=== PATIENT | female | born 1990 | race American Indian/Alaskan Native ===

== ENCOUNTER 2018-05-14 16:56 | Inpatient (IN) | payer MEDICAID ==
[2018-05-14] MEDS ORDERED: MINERAL OIL PO PRN (18:42)
[2018-05-14] MEDS ORDERED: ePHEDrine SULFATE IV PRN (18:42)
[2018-05-14] MEDS ORDERED: BRETHINE SUB-Q PRN (18:42)
[2018-05-14] MEDS ORDERED: BRETHINE IVP PRN (18:42)
[2018-05-14] MEDS ORDERED: ZOFRAN IV PRN (18:42)
--- NOTE | 2018-05-14 18:44 | History and Physical Report ---
History of Present Illness Date of examination: 05/14/18 Date of admission: 05/14/2018 Chief complaint: active labor History of present illness: 27y/o @ 40+4 weeks presents in active labor. The patient had cervical change from 1cm to 4cm. She denies leakage of fluid. Past History Past Medical History: no pertinent history Past Surgical History: no surgical history Social history: single - Obstetrical History Expected Date of Delivery: 05/10/18 Actual Gestation: 40 Week(s) 5 Day(s) : 1 Para: 0 Hx # Term Pregnancies: 0 Number of Pregnancies: 0 Spontaneous Abortions: 0 Induced : 0 Number of Living Children: 0 Medications and Allergies Allergies Allergy/AdvReac Type Severity Reaction Status Date / Time No Known Allergies Allergy Unverified 05/14/18 17:09 Home Medications Medication Instructions Recorded Confirmed Last Taken Type No Known Home Medications [No 05/14/18 05/14/18 Unknown History Reported Home Medications] Active Meds: Active Medications Lactated Ringer's (Lactated Ringers) 1,000 mls @ 125 mls/hr IV DIRECT PAMLEA Review of Systems All systems: negative Genitourinary: contractions, no leakage of fluid - Vital Signs Vital signs: Vital Signs Pulse Pulse Ox 85 99 05/14/18 17:12 05/14/18 17:12 Temp Pulse Resp BP Pulse Ox 98.6 F 77 18 119/75 100 05/14/18 17:13 05/14/18 18:34 05/14/18 17:13 05/14/18 18:34 05/14/18 17:22 - Physical Exam Breasts: Positive: deferred Cardiovascular: Regular rate Lungs: Positive: Clear to auscultation Abdomen: Positive: normal appearance Results Result Diagrams: 05/14/18 18:53 All other labs normal. Assessment and Plan - Patient Problems (1) Post-term Current Visit: Yes Status: Acute Plan to address problem: admit to L&D
[2018-05-14] MEDS ORDERED: PITOCin/NS 20 UNIT/1000ML DRIP 20 UNITS/1,000 ML BAG IV SCH (19:00)
[2018-05-14] MEDS ORDERED: LACTATED RINGERS 1,000 ML IV SCH (19:00)
[2018-05-14] MEDS ORDERED: XYLOCAINE 2% INFILTRATI ONE (19:00)
[2018-05-14] MEDS ORDERED: PITOCin/NS 30 UNIT/500ML 30 UNITS/500 ML BAG IV SCH (19:00)
[2018-05-14] MEDS: LACTATED RINGERS 1,000 ML IV SCH ×2 (19:05→22:28)
[2018-05-14 19:10] LABS: Hematocrit 36.3 % (30.3-42.9); Mean Corpuscular HGB Conc 33 % (30-34); Mean Corpuscular Hemoglobin 29 pg (28-32); Mean Corpuscular Volume 88 fl (79-97); Platelet Count 240 K/mm3 (140-440); Red Blood Count 4.13 M/mm3 (3.65-5.03); Red Cell Distribution Width 14.5 % (13.2-15.2)
[2018-05-14] MEDS: SUBLIMAZE IV PRN ×2 (20:11→22:27)
[2018-05-15] MEDS: SUBLIMAZE IV PRN (01:03)
[2018-05-15] MEDS: LACTATED RINGERS 1,000 ML IV SCH (01:04)
[2018-05-15] MEDS ORDERED: NARCAN 2 MG/2 ML IV PRN (03:03)
[2018-05-15] MEDS ORDERED: ePHEDrine SULFATE IV PRN (03:03)
--- NOTE | 2018-05-15 03:03 | Anesthesia Consultation ---
Anesthesia Consult and Med Hx Date of service: 05/15/18 - Airway Anesthetic Teeth Evaluation: Good ROM Head & Neck: Adequate Mental/Hyoid Distance: Adequate Mallampati Class: Class II Intubation Access Assessment: Good - Pulmonary Exam CTA: Yes - Cardiac Exam Cardiac Exam: No Murmur - Pre-Operative Health Status ASA Pre-Surgery Classification: ASA2 Proposed Anesthetic Plan: Epidural - Pulmonary Hx Asthma: No - Cardiovascular System Hx Hypertension: No - Central Nervous System Hx Seizures: No Hx Psychiatric Problems: No - Endocrine Hx Renal Disease: No Hx Hypothyroidism: No Hx Hyperthyroidism: No - Hematic Hx Anemia: No Hx Sickle Cell Disease: No - Other Systems Hx Alcohol Use: No
[2018-05-15] MEDS: fentaNYL-BUPIV 2 MCG/ML-0.125% 200 MCG/100 ML BAG EPIDURAL SCH ×2 (04:02→11:14)
[2018-05-15] MEDS ORDERED: METHERGINE IM ONE ×2 (12:47→13:10)
--- NOTE | 2018-05-15 13:09 | Procedure Note ---
OB Delivery Note - Delivery Date of Delivery: 05/15/18 (6-7oz male @ 1245) Surgeon: KAE STRINGER Estimated blood loss: 300cc - Vaginal Delivery presentation: vertex Delivery position: OA Intrapartum events: mult.variable deceleratio Delivery augmentation: rupture of membranes, pitocin Delivery monitor: external FHT, external uterine Route of delivery: Delivery placenta: spontaneous Episiotomy: none Delivery laceration: none Anesthesia: epidural - Infant A at 1 minute: 8 at 5 minutes: 9 Infant Gender: Male (Think meconium, NICU @ BS. To warmer for suction. Spont. placenta. Bleeding small but continious trickle, methergine IM and straight cath - no urine output. FF 3 below U, ML bleeding scant. No lacerations)
[2018-05-15] MEDS ORDERED: ZOFRAN IV PRN (13:11)
[2018-05-15] MEDS ORDERED: MILK OF MAGNESIA PO PRN (13:11)
[2018-05-15] MEDS ORDERED: LANSINOH TP PRN (13:11)
[2018-05-15] MEDS ORDERED: DULCOLAX PR PRN (13:11)
[2018-05-15] MEDS ORDERED: NORCO 5/325 PO PRN (13:11)
[2018-05-15] MEDS ORDERED: PHENERGAN PO PRN (13:11)
[2018-05-15] MEDS ORDERED: PHENERGAN PR PRN (13:11)
[2018-05-15] MEDS ORDERED: TYLENOL PO PRN (13:11)
[2018-05-15] MEDS ORDERED: BENADRYL PO PRN (13:11)
[2018-05-15] MEDS ORDERED: TUCKS PAD TP PRN (13:11)
[2018-05-15] MEDS ORDERED: SODIUM CHLORIDE FLUSH SYRINGE 10 ML IV NR (14:00)
[2018-05-16 01:48] LABS: Hematocrit 28.5 % (30.3-42.9); Hemoglobin 9.7 gm/dl (10.1-14.3)
[2018-05-16] MEDS: MOTRIN PO SCH ×4 (04:54→23:12)
--- NOTE | 2018-05-16 09:09 | Progress Note ---
Assessment and Plan A/P PPD 1 acute anemia on iron bid routine PP orders consider d/c home tomorrow Subjective - Subjective Date of service: 05/16/18 Principal diagnosis: s/p Patient reports: appetite normal, voiding normally, pain well controlled, flatus , ambulating normally : doing well Objective - Vital Signs Latest vital signs: Vital Signs Temp Pulse Resp BP BP Pulse Ox 05/16/18 08:32 20 05/16/18 00:30 98.5 F 76 20 98/62 97 05/15/18 20:45 98.3 F 74 120/72 05/15/18 15:36 99.0 F 75 14 134/84 97 05/15/18 15:00 98.3 F 72 20 133/76 05/15/18 14:21 70 98 05/15/18 14:16 72 97 05/15/18 14:11 73 99 05/15/18 14:06 73 97 05/15/18 14:01 68 99 05/15/18 13:42 71 152/81 05/15/18 13:27 75 142/72 05/15/18 13:08 98 F 05/15/18 12:50 100 H 104/67 05/15/18 12:21 88 116/61 05/15/18 11:49 90 132/79 05/15/18 11:20 94 H 106/54 05/15/18 11:12 98.7 F 05/15/18 11:01 127 H 80 L 05/15/18 11:00 101 H 100 05/15/18 10:55 97 H 96 05/15/18 10:54 88 05/15/18 10:51 100 H 116/68 05/15/18 10:50 90 95 05/15/18 10:49 75 L 05/15/18 10:45 104 H 99 05/15/18 10:40 100 H 96 05/15/18 10:35 98 H 100 05/15/18 10:30 83 98 05/15/18 10:25 88 99 05/15/18 10:20 94 H 116/73 99 05/15/18 10:18 84 91 05/15/18 10:15 85 100 05/15/18 10:10 83 99 05/15/18 10:05 91 H 100 05/15/18 10:00 89 100 05/15/18 09:55 95 H 99 05/15/18 09:50 87 106/67 100 05/15/18 09:45 86 100 05/15/18 09:40 82 100 05/15/18 09:35 87 100 05/15/18 09:30 83 100 05/15/18 09:25 82 100 05/15/18 09:20 85 118/72 100 05/15/18 09:15 80 100 Intake and Output 05/15/18 05/16/18 05/16/18 23:59 07:59 15:59 Intake Total 240 360 Balance 240 360 Intake: Oral 240 360 Other: Total, Intake Amount 240 120 # Voids Void 1 1 - Exam Breasts: Present: normal Cardiovascular: Present: Regular rate, Normal S1 Lungs: Present: Clear to auscultation Abdomen: Present: normal appearance, soft, normal bowel sounds. Absent: distention, tenderness, guarding Vulva: both: normal Uterus: Present: normal, firm, fundal height below umbilicus. Absent: bogginess , tenderness Extremities: Present: normal Deep Tendon Reflex Grade: Normal +2 - Labs Labs: Abnormal lab results 05/16/18 Range/Units 01:22 Hgb 9.7 L (10.1-14.3) gm/dl Hct 28.5 L D (30.3-42.9) %
--- NOTE | 2018-05-17 04:59 | Discharge Summary ---
Providers - Providers Date of Admission: 05/14/18 19:26 Date of discharge: 05/17/18 Attending physician: JUAN DAVID ANSARI Primary care physician: JUAN DAVID ANSARI Hospitalization Reason for admission: active labor Delivery: Episiotomy: none Laceration: none Incision: normal Other procedures: none complications: none Discharge diagnosis: IUP at term delivered [place] baby: male Condition at discharge: Poor Disposition: DC-01 TO HOME OR SELFCARE Plan - Discharge Medications Prescriptions: Ferrous Sulfate 325 mg PO BID #60 tablet. Ibuprofen [Motrin] 600 mg PO Q8H PRN #30 tablet PRN Reason: Pain oxyCODONE /ACETAMINOPHEN [Percocet 5/325] 1 tab PO Q6HR PRN #20 tablet PRN Reason: Pain - Provider Discharge Summary Activity: routine, no sex for 6 weeks, no strenuous exercise Diet: routine Instructions: routine Additional instructions: [] Smoking cessation referral if applicable(refer to patient education folder for contact #) [] Refer to [facility] Booklet Call your doctor immediately for: * Fever > 100.5 * Heavy vaginal bleeding ( >1 pad per hour) * Severe persistent headache * Shortness of breath * Reddened, hot, painful area to leg or breast * Drainage or odor from incision. * Keep incision clean and dry at all times and follow doctor's instructions regarding bathing/showering - Follow up plan Follow up: JUAN DAVID ANSARI MD [Primary Care Provider] - 06/13/18
[2018-05-17] MEDS: MOTRIN PO SCH ×2 (05:09→12:45)
[2018-05-17] MEDS ORDERED: BOOSTRIX IM ONE (06:00)
[2018-05-17 14:42] VITALS: BP 112/75
== END 2018-05-17 14:15 | disposition home or self-care (01) | DRG 775 ==
LOC: TRG 16:56 → LD 19:26 → TRG 19:26 → OB 05-15 15:33
PROVIDERS: ADMIT Obstetrics & Gynecology; ATTEND Obstetrics & Gynecology
PROC: 10E0XZZ Delivery of Products of Conception, External Approach (ICD-10-PCS; principal; 2018-05-15)
PROC: 3E0R3BZ Introduction of Anesthetic Agent into Spinal Canal, Percutaneous Approach (ICD-10-PCS; 2018-05-15)
PROC: 00HU33Z Insertion of Infusion Device into Spinal Canal, Percutaneous Approach (ICD-10-PCS; 2018-05-15)
PROC: 3E0234Z Introduction of Serum, Toxoid and Vaccine into Muscle, Percutaneous Approach (ICD-10-PCS; 2018-05-17)
DX: O48.0 Post-term pregnancy (principal); O76 Abnormality in fetal heart rate and rhythm complicating labor and delivery; Z3A.40 40 weeks gestation of pregnancy; Z37.0 Single live birth; Z23 Encounter for immunization; O77.0 Labor and delivery complicated by meconium in amniotic fluid; O90.81 Anemia of the puerperium; D64.9 Anemia, unspecified
CPT/HCPCS: 36415; 85014; 85018; 85027; 86592; 86850; 86900; 86901; 90471; 90715; 99211; G0463; J2210; J2405; J2590; J3010; J7120

== ENCOUNTER 2021-02-03 12:12 | Inpatient (IN) | payer MEDICAID ==
[2021-02-03] MEDS ORDERED: LACTATED RINGERS 1,000 ML ONE (13:00)
[2021-02-03] MEDS ORDERED: MINERAL OIL 30 ML ORAL LIQD PO PRN (13:18)
[2021-02-03] MEDS ORDERED: ONDANSETRON 4 MG/2 ML INJ IV PRN ×2 (13:18→23:34)
[2021-02-03] MEDS ORDERED: TERBUTALINE 1 MG/1 ML INJ SUB-Q PRN (13:18)
[2021-02-03] MEDS ORDERED: LIDOCAINE (2%) 20 MG/1 ML VIAL 20 ML MDV INFILTRATI NR (13:18)
[2021-02-03] MEDS ORDERED: miSOPROStol 200 MCG TAB PR PRN (13:18)
[2021-02-03] MEDS ORDERED: METHYLERGONOVINE MALEATE 0.2 MG/ML VIAL IM PRN (13:18)
[2021-02-03] MEDS ORDERED: OXYTOCIN 10 UNIT/1 ML INJ IM PRN (13:18)
[2021-02-03] MEDS ORDERED: LOPERAMIDE 2 MG CAP PO PRN (13:18)
[2021-02-03] MEDS ORDERED: AMPICILLIN/NS 2 GM/100 ML 2 GM/100 ML BAG IV ONE (13:18)
[2021-02-03] MEDS ORDERED: CARBOPROST TROMETHAMINE 250 MCG/1 ML INJ IM PRN (13:18)
[2021-02-03] MEDS ORDERED: NALOXONE 0.4 MG/1 ML INJ IV PRN (13:18)
[2021-02-03 13:26] LABS: Hematocrit 34.9 % (30.3-42.9); Hemoglobin 11.5 gm/dl (10.1-14.3); Mean Corpuscular HGB Conc 33 % (30-34); Mean Corpuscular Volume 89 fl (79-97); Platelet Count 219 K/mm3 (140-440); Red Blood Count 3.91 M/mm3 (3.65-5.03); Red Cell Distribution Width 14.8 % (13.2-15.2)
[2021-02-03] MEDS ORDERED: LACTATED RINGERS 1,000 ML IV SCH (13:30)
[2021-02-03] MEDS ORDERED: BUTORPHANOL 2 MG/1 ML INJ IV PRN (14:00)
[2021-02-03] MEDS ORDERED: ePHEDrine SULFATE 50 MG/1 ML INJ IV PRN ×2 (14:00→14:21)
[2021-02-03] MEDS ORDERED: fentaNYL 100 MCG/2 ML INJ IV PRN (14:00)
[2021-02-03] MEDS ORDERED: OXYTOCIN DRIP 30 UNITS/500 ML BAG IV SCH ×2 (14:00)
[2021-02-03] MEDS ORDERED: NALOXONE 2 MG/2 ML INJ IV PRN (14:21)
--- NOTE | 2021-02-03 14:23 | Anesthesia Consultation ---
Anesthesia Consult and Med Hx Date of service: 02/03/21 - Airway Anesthetic Teeth Evaluation: Good ROM Head & Neck: Adequate Mental/Hyoid Distance: Adequate Mallampati Class: Class II Intubation Access Assessment: Good - Pulmonary Exam CTA: Yes - Cardiac Exam Cardiac Exam: RRR - Pre-Operative Health Status ASA Pre-Surgery Classification: ASA2 Proposed Anesthetic Plan: Epidural - Pulmonary Hx Smoking: No Hx Asthma: No Hx Respiratory Symptoms: No SOB: No COPD: No Home Oxygen Therapy: No Hx Pneumonia: No Hx Sleep Apnea: No - Cardiovascular System Hx Hypertension: No Hx Coronary Artery Disease: No Hx Heart Attack/AMI: No Hx Angina: No Hx Percutaneous Transluminal Coronary Angioplasty (PTCA): No Hx Cardia Arrhythmia: No Hx Pacemaker: No Hx Internal Defibrillator: No Hx Valvular Heart Disease: No Hx Heart Murmur: No Hx Peripheral Vascular Disease: No - Central Nervous System Hx Neuromuscular Disorder: No Hx Seizures: No CVA: No Hx Back Pain: No Hx Psychiatric Problems: No - Gastrointestinal Hx Ulcer: No Hx Gastroesophageal Reflux Disease: No - Endocrine Hx Renal Disease: No Hx End Stage Renal Disease: No Hx Cirrhosis: No Hx Liver Disease: No Hx Insulin Dependent Diabetes: No Hx Non-Insulin Dependent Diabetes: No Hx Thyroid Disease: No Hx Hypothyroidism: No Hx Hyperthyroidism: No - Hematic Hx Anemia: No Hx Sickle Cell Disease: No - Other Systems Hx Alcohol Use: No Hx Substance Use: No Hx Cancer: No Hx Obesity: No
--- NOTE | 2021-02-03 14:24 | Progress Note ---
Labor Epidural - Labor Epidural Start Time: 13:59 Stop Time: 14:09 Performed by:: NITO BURNETT Procedure: Patient is requesting a laboring epidural for laboring pain. Patient IDed, H&P reviewed, all questions and concerns were answered, and consent was signed. Timeout was performed at bedside. Patient in sitting position. Sterile prep and drape was performed. [3] ml of 1% lidocaine skin wheal at L[3]- L [4]. 18- gauge Tuohy epidural needle was advanced to loss of resistance with saline technique 4cm. Negative CSF negative blood. Epidural catheter advanced to [10] centimeters. [NEGATIVE] Aspiration [NEGATIVE] test dose. Sterile dressing applied. Patient tolerated procedure.
[2021-02-03] MEDS ORDERED: fentaNYL-BUPIV 2 MCG/ML-0.125% 200 MCG/100 ML BAG EPIDURAL SCH (15:00)
--- NOTE | 2021-02-03 17:19 | History and Physical Report ---
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 She denies vaginal bleeding or leakage of fluid. She has had care at [facility] since 12 wks complicated by genital herpes without lesion or prodrome. She is GBS negative. Past History Past Medical History: no pertinent history Past Surgical History: no surgical history [employer] History: herpes (no lesion or prodrome ) Family/Genetic History: cancer Social history: no significant social history - Obstetrical History Expected Date of Delivery: 02/16/21 Actual Gestation: 38 Week(s) 1 Day(s) : 2 Para: 1 Hx # Term Pregnancies: 1 Number of Pregnancies: 0 Spontaneous Abortions: 0 Induced : 0 Number of Living Children: 1 Medications and Allergies Allergies Allergy/AdvReac Type Severity Reaction Status Date / Time No Known Allergies Allergy Verified 02/03/21 12:24 Home Medications Medication Instructions Recorded Confirmed Last Taken Type Ferrous Sulfate 325 mg PO BID #60 tablet. 05/16/18 Unknown Rx Ibuprofen [Motrin] 600 mg PO Q8H PRN #30 tablet 05/16/18 Unknown Rx oxyCODONE /ACETAMINOPHEN [Percocet 1 tab PO Q6HR PRN #20 tablet 05/16/18 Unknown Rx 5/325] Active Meds: Active Medications Butorphanol Tartrate (Butorphanol 2 Mg/1 Ml Inj) 2 mg IV Q2H PRN PRN Reason: Pain , Severe (7-10) Last Admin: 02/03/21 13:34 Dose: 2 mg Documented by: Carboprost Tromethamine (Carboprost Tromethamine 250 Mcg/1 Ml Inj) 250 mcg IM ONCE PRN PRN Reason: Uterine Bleeding Stop: 02/04/21 13:17 Ephedrine Sulfate (Ephedrine Sulfate 50 Mg/1 Ml Inj) 10 mg IV Q2M PRN PRN Reason: Hypotension Fentanyl (Fentanyl 100 Mcg/2 Ml Inj) 100 mcg IV Q2H PRN PRN Reason: Pain,Severe (7-10) LABOR PAIN Oxytocin/Sodium Chloride (Pitocin/Ns 30 Unit/500ml) 30 units in 500 mls @ 2 mls/hr IV TITR PAMELA; Protocol Last Titration: 02/03/21 16:51 Dose: 8 ml/hr, 8 mls/hr Documented by: Lactated Ringer's (Lactated Ringers) 1,000 mls @ 125 mls/hr IV DIRECT PAMELA Last Admin: 02/03/21 14:09 Dose: 125 mls/hr Documented by: Oxytocin/Sodium Chloride (Pitocin/Ns 30 Unit/500ml) 30 units in 500 mls @ 40 mls/hr IV TITR PAMELA; Protocol Fentanyl/Bupivacaine/Sodium Chlor (Fentanyl-Bupiv 2 Mcg/Ml-0.125%) 200 mcg in 100 mls @ 12 mls/hr EPIDURAL TITR PAMELA; Protocol Last Admin: 02/03/21 14:52 Dose: 12 mls/hr Documented by: Lidocaine (Lidocaine (2%) 20 Mg/1 Ml Vial 20 Ml Mdv) 20 ml INFILTRATI ONCE NR Stop: 02/03/21 20:00 Loperamide HCl (Loperamide 2 Mg Cap) 2 mg PO ONCE PRN PRN Reason: give with Hemabate Methylergonovine Maleate (Methylergonovine Maleate 0.2 Mg/Ml Vial) 0.2 mg IM ONCE PRN PRN Reason: Uterine Bleeding Mineral Oil (Mineral Oil 30 Ml Oral Liqd) 30 ml PO QHS PRN PRN Reason: Constipation Misoprostol (Misoprostol 200 Mcg Tab) 800 mcg NC ONCE PRN PRN Reason: Uterine Bleeding Naloxone HCl (Naloxone 2 Mg/2 Ml Inj) 0.2 mg IV Q5M PRN PRN Reason: Respiratory sedation Ondansetron HCl (Ondansetron 4 Mg/2 Ml Inj) 4 mg IV Q8H PRN PRN Reason: Nausea And Vomiting Oxytocin (Oxytocin 10 Unit/1 Ml Inj) 10 unit IM ONCE PRN PRN Reason: Uterine Bleeding Terbutaline Sulfate (Terbutaline 1 Mg/1 Ml Inj) 0.25 mg SUB-Q ONCE PRN PRN Reason: Hyperstimulation/Hypertonicity Review of Systems All systems: negative - Vital Signs Vital signs: Vital Signs Pulse BP Pulse Ox 76 116/71 99 02/03/21 12:29 02/03/21 12:29 02/03/21 12:29 Temp Pulse Resp BP Pulse Ox 98.0 F 84 18 98/64 100 02/03/21 12:58 02/03/21 17:17 02/03/21 13:34 02/03/21 16:21 02/03/21 17:17 - Physical Exam Breasts: Positive: deferred Abdomen: Positive: soft (gravid ) Uterus: Positive: enlarged (gravid ) Extremities: Positive: normal - Obstetrical FHR: auscultation normal Cervical Dilatation: 6 (per RN ) Uterine Contraction Pattern: Regular Uterine Tone Measurement Phase: Resting Uterine Contraction Intensity: Strong/Firm Results Result Diagrams: 02/03/21 13:00 Abnormal lab results 02/03/21 Range/Units 13:00 WBC 12.8 H (4.5-11.0) K/mm3 All other labs normal. Assessment and Plan A: IUP at 38w1d Active Labor Genital Herpes without lesion or prodrome GBS Negative P: Admit to labor and delivery Routine intrapartum care Anticipate vaginal delivery
--- NOTE | 2021-02-03 17:20 | Event Note ---
Date: 02/03/21 Pt comfortable with epidural. Category II tracing. SVE: /-3. AROM- thick meconium stained fluid. Continue pitocin augmentation. Closely monitor maternal and status.
[2021-02-03] MEDS ORDERED: AMPICILLIN/NS 1 GM/50 ML 1 GM/50 ML BAG IV SCH (18:00)
--- NOTE | 2021-02-03 20:59 | Procedure Note ---
OB Delivery Note - Delivery Date of Delivery: 02/03/21 Surgeon: HARJEET NASSAR Estimated blood loss: 200cc - Vaginal Delivery presentation: vertex Delivery position: OA Intrapartum events: PROM->1hr before delivery, meconium Delivery induction: none Delivery augmentation: rupture of membranes, pitocin Delivery monitor: external FHT, external uterine Route of delivery: Delivery placenta: spontaneous Delivery cord: nuchal cord (doubly clamped and cut ) Episiotomy: none Delivery laceration: none Anesthesia: epidural - Infant A at 1 minute: 8 at 5 minutes: 9 Infant Gender: Male (3202g (7lb 1oz) @ 2039 pm)
[2021-02-03] MEDS ORDERED: MAGNESIUM HYDROXIDE (MOM) ORAL LIQD UDC PO PRN (23:34)
[2021-02-03] MEDS ORDERED: HYDROcodone/ACETAMINOPHEN 5-325 MG TAB PO PRN (23:34)
[2021-02-03] MEDS ORDERED: diphenhydrAMINE 25 MG CAP PO PRN (23:34)
[2021-02-03] MEDS ORDERED: PROMETHAZINE 25 MG RECT SUPP PR PRN (23:34)
[2021-02-03] MEDS ORDERED: BENZOCAINE/MENTHOL 20/0.5% TOP SPRAY 56 GM TP PRN (23:34)
[2021-02-03] MEDS ORDERED: WITCH HAZEL/ GLYCERIN PAD TP PRN (23:34)
[2021-02-03] MEDS ORDERED: PROMETHAZINE 25 MG TAB PO PRN (23:34)
[2021-02-03] MEDS ORDERED: LANOLIN/ZINC/DIMETHICONE (LANSINOH) 7 GM TP PRN ×2 (23:34)
[2021-02-04] MEDS: FERROUS SULFATE 325 MG TAB PO SCH ×3 (00:41→21:57)
[2021-02-04] MEDS: IBUPROFEN 600 MG TAB PO SCH ×4 (00:41→21:57)
--- NOTE | 2021-02-04 10:34 | Progress Note ---
Assessment and Plan - Patient Problems (1) Normal vaginal delivery Current Visit: Yes Status: Acute Plan to address problem: care per routine -breast feeding -PP hgb pending -pain controlled with Ibuprofen, recommend scheduled use for discomfort Anticipate discharge PPD 2 Subjective - Subjective Date of service: 02/04/21 Principal diagnosis: Vaginal delivery Patient reports: appetite normal, voiding normally, pain well controlled, ambulating normally, no dizzy ambulation, no nauseated : doing well Objective - Vital Signs Latest vital signs: Vital Signs Temp Pulse Resp BP BP Pulse Ox 02/04/21 09:43 97.9 F 74 18 89/52 97 02/04/21 04:00 98.6 F 69 16 114/78 02/03/21 23:05 98.2 F 65 18 102/65 100 02/03/21 22:22 80 114/62 99 02/03/21 22:17 77 99 02/03/21 22:12 69 99 02/03/21 22:07 73 99 02/03/21 22:02 72 99 02/03/21 21:57 72 100 02/03/21 21:52 74 100 02/03/21 21:47 80 100 02/03/21 21:42 74 100 02/03/21 21:37 86 95 02/03/21 21:32 77 100 02/03/21 21:27 78 100 02/03/21 21:22 73 126/58 99 02/03/21 21:17 95 H 98 02/03/21 21:12 88 100 02/03/21 21:07 97 H 100 02/03/21 21:02 96 H 97 02/03/21 20:57 110 H 99 02/03/21 20:52 105 H 100 02/03/21 20:47 101 H 100 02/03/21 20:46 99 H 106/59 02/03/21 20:42 99 H 100 02/03/21 20:37 99 H 100 02/03/21 20:32 102 H 100 02/03/21 20:30 107 H 83 L 02/03/21 20:27 110 H 100 02/03/21 20:22 86 112/65 100 02/03/21 20:17 86 100 02/03/21 20:12 88 100 02/03/21 20:07 101 H 99 02/03/21 20:02 98 H 99 21 19:57 104 H 99 2021 19:52 107 H 99 2021 19:49 83 103/58 20/21 19:47 96 H 99 2021 19:42 92 H 100 2021 19:37 104 H 98 21 19:32 97 H 99 2021 19:27 100 H 99 2021 19:22 93 H 99 02/03/21 19:17 86 100 02/03/21 19:13 98.1 F 95 H 16 103/57 100 02/03/21 19:12 95 H 103/57 100 02/03/21 19:07 87 100 02/03/21 19:05 92 H 91 02/03/21 19:02 82 100 02/03/21 19:00 120 H 92 02/03/21 18:57 80 98 2021 18:52 84 99 02/03/21 18:47 73 99 02/03/21 18:42 72 99 02/03/21 18:37 71 99 02/03/21 18:32 70 98 02/03/21 18:27 68 99 2021 18:22 74 108/64 100 20/21 18:17 71 100 2021 18:12 72 100 2021 18:07 74 100 2021 18:02 75 99 20/21 17:57 73 99 20/21 17:52 69 100 20/21 17:47 74 100 2021 17:42 77 100 2021 17:37 86 99 20/21 17:32 81 100 20/21 17:27 80 100 20/21 17:22 88 122/72 100 20/21 17:17 84 100 20/21 17:12 77 100 20/21 17:07 81 100 20/21 17:02 74 100 20/21 16:57 72 100 20/21 16:52 72 100 20/21 16:47 77 99 20/21 16:42 77 100 20/21 16:37 73 99 20/21 16:32 72 99 20/21 16:27 68 100 04/20/21 16:22 75 100 04/20/21 16:21 89 98/64 04/20/21 16:19 77 106/65 04/20/21 16:17 94 H 103/62 99 20/21 16:15 84 101/58 04/20/21 16:13 73 98/58 04/20/21 16:12 81 100 /20/21 16:11 78 96/54 0420/21 16:09 76 96/56 20/21 16:07 74 98/54 100 20/21 16:05 88 101/66 20/21 16:03 105 H 105/65 20/21 16:02 117 H 100 02/03/ 16:01 77 115/73 20/ 15:59 86 106/69 0420/21 15:57 86 104/68 99 20/21 15:55 80 110/72 20/21 15:53 90 109/72 20/21 15:52 82 99 02/03/ 15:51 84 107/72 20/21 15:49 77 102/65 20/21 15:47 75 103/65 100 20/21 15:45 71 103/63 04/20/21 15:43 79 102/66 20/21 15:42 78 99 20/21 15:41 87 109/68 20/21 15:39 88 108/67 20/21 15:37 76 105/62 99 20/21 15:35 77 104/61 04/20/21 15:33 73 101/61 04/20/21 15:32 76 100 04/20/21 15:31 86 101/60 04/20/21 15:29 78 100/61 04/20/21 15:27 78 102/60 100 04/20/21 15:25 86 112/77 04/20/21 15:23 74 103/63 04/20/21 15:22 76 100 04/20/21 15:21 84 105/63 04/20/21 15:19 76 105/64 04/20/21 15:17 74 113/66 100 04/20/21 15:15 77 102/63 04/20/21 15:13 71 104/66 04/20/21 15:12 74 100 /20/21 15:11 76 108/71 /20/21 15:09 77 104/65 /20/21 15:07 75 109/68 100 02/03/21 15:05 79 108/66 20/21 15:03 75 107/64 02/03/21 15:02 77 99 02/03/ 15:01 77 109/66 02/03/ 14:59 77 106/65 20/21 14:57 71 109/66 100 20/21 14:55 79 107/62 02/03/21 14:53 74 106/65 20/21 14:52 74 99 02/03/ 14:51 76 105/61 20/ 14:49 81 100/60 20/21 14:47 75 108/66 98 02/03/21 14:45 77 105/65 02/03/21 14:43 82 108/60 02/03/21 14:42 76 99 02/03/21 14:41 74 103/64 02/03/21 14:39 75 108/69 02/03/21 14:37 78 108/70 99 02/03/ 14:35 78 105/66 02/03/ 14:33 77 104/67 02/03/ 14:32 87 98 02/03/ 14:31 81 102/63 20/21 14:29 78 102/62 20/21 14:27 90 106/63 100 02/03/21 14:25 81 101/56 20/21 14:23 77 104/56 20/21 14:22 76 99 20/21 14:21 81 101/56 20/21 14:19 74 101/60 20/21 14:17 73 105/58 98 20/21 14:15 74 110/63 20/21 14:13 75 110/62 20/21 14:12 87 99 20/21 14:11 82 108/70 20/21 14:09 82 116/64 20/21 14:08 84 93 20/ 14:07 85 114/63 98 20/ 14:05 90 117/63 02/03/21 14:03 83 124/73 02/03/21 14:02 89 99 02/03/21 14:01 93 H 122/69 02/03/21 13:59 88 126/76 02/03/21 13:58 81 93 02/03/21 13:57 80 93 02/03/21 13:52 77 93 02/03/21 13:50 83 93 02/03/21 13:47 80 97 02/03/21 13:42 73 96 02/03/21 13:37 73 92 02/03/21 13:34 18 02/03/21 13:32 78 100 02/03/21 13:31 90 02/03/21 13:27 82 99 02/03/21 13:19 74 97 02/03/21 13:14 71 124/58 99 02/03/21 12:58 98.0 F 72 18 124/58 02/03/21 12:39 84 97 02/03/21 12:38 83 82 L 02/03/21 12:34 79 99 02/03/21 12:29 74 116/71 99 Intake and Output 02/03/21 02/04/21 02/04/21 22:59 06:59 14:59 Intake Total 1.933 300 Output Total 100 1800 Balance -98.067 -1500 Intake: IV 1.933 PITOCin/NS 30 UNIT/500ML 1.933 30 units In 500 ml @ 2 mls/hr IV TITR PAMELA Rx#: [id number] Intake, Free Water 300 Output: Urine 100 1800 Indwelling Catheter 100 Void 1800 Other: Total, Output Amount 100 400 # Voids Void 1 Estimated Blood Loss 200 - Exam Breasts: Present: normal Cardiovascular: Present: Regular rate Lungs: Present: Clear to auscultation Abdomen: Present: normal appearance, soft. Absent: distention, tenderness, guarding Uterus: Present: normal, firm. Absent: tenderness Extremities: Present: normal - Labs Labs: Abnormal lab results 02/03/21 Range/Units 13:00 WBC 12.8 H (4.5-11.0) K/mm3
[2021-02-04 11:32] LABS: Hematocrit 28.9 % (30.3-42.9); Hemoglobin 9.6 gm/dl (10.1-14.3)
--- NOTE | 2021-02-04 17:37 | Post Anesthesia Evaluation ---
- Post Anesthesia Evaluation Patient Participated: Yes Airway Patent: Yes Stable Respiratory Function: Yes Nausea/Vomiting: No Temp > 96.8F: Yes Pain Manageable: Yes Adequeate Hydration: Yes Anesthesia Complications: No Block Receding Appropriately: Yes Patient on Ventilator: No
[2021-02-05] MEDS: IBUPROFEN 600 MG TAB PO SCH ×2 (04:03→06:43)
--- NOTE | 2021-02-05 08:05 | Progress Note ---
Assessment and Plan - Patient Problems (1) Normal vaginal delivery Current Visit: Yes Status: Acute Plan to address problem: patient doing well discharge home Subjective - Subjective Date of service: 02/05/21 Principal diagnosis: Vaginal delivery Interval history: Patient doing well. patient is covid positive. denies any respiratory symptoms Patient reports: appetite normal, voiding normally, pain well controlled : doing well Objective - Vital Signs Latest vital signs: Vital Signs Temp Pulse Resp Resp Resp BP BP 02/05/21 06:43 18 02/05/21 00:00 98.8 F 79 18 118/75 02/04/21 22:37 18 18 02/04/21 21:57 16 02/04/21 21:33 97.4 F L 69 18 108/69 02/04/21 16:06 97.9 F 79 18 93/60 02/04/21 11:52 97.8 F 70 18 86/47 02/04/21 09:43 97.9 F 74 18 89/52 Pulse Ox 02/05/21 06:43 02/05/21 00:00 02/04/21 22:37 02/04/21 21:57 02/04/21 21:33 97 02/04/21 16:06 96 02/04/21 11:52 98 02/04/21 09:43 97 Intake and Output 02/04/21 02/05/21 02/05/21 22:59 06:59 14:59 Intake Total 660 300 Output Total 900 Balance -240 300 Intake: Oral 360 Intake, Free Water 300 300 Output: Urine 900 Void 900 Other: Total, Intake Amount 240 Total, Output Amount 500 # Voids Void 1 - Labs Labs: Abnormal lab results 02/04/21 02/04/21 Range/Units 10:53 Unknown Hgb 9.6 L (10.1-14.3) gm/dl Hct 28.9 L D (30.3-42.9) % Coronavirus (PCR) Positive A (Negative)
--- NOTE | 2021-02-05 08:06 | Discharge Summary ---
Providers - Providers Date of Admission: 02/03/21 13:39 Date of discharge: 02/05/21 Attending physician: HARJEET NASSAR 02/03/21 23:34 Consult to [employer] [CONS] Routine Reason For Exam: assistance with , SNS Primary care physician: JUAN DAVID ANSARI Hospitalization Reason for admission: active labor Delivery: Discharge diagnosis: IUP at term delivered Hospital course: Patient admitted in labor. Had . Covid positive without symptoms Condition at discharge: Good Disposition: DC-01 TO HOME OR SELFCARE - Discharge Diagnoses (1) Normal vaginal delivery Status: Acute Plan - Discharge Medications Prescriptions: Ibuprofen [Motrin] 800 mg PO Q8HR PRN #30 tablet PRN Reason: Pain , Severe (7-10) HYDROcodone/APAP 5-325 [[place] 5/325] 1 each PO Q6HR PRN #15 tablet PRN Reason: Pain - Provider Discharge Summary Activity: no sex for 6 weeks, no heavy lifting 4 weeks, no strenuous exercise Diet: routine Instructions: routine Additional instructions: [] Smoking cessation referral if applicable(refer to patient education folder for contact #) [] Refer to [facility] Booklet Call your doctor immediately for: * Fever > 100.5 * Heavy vaginal bleeding ( >1 pad per hour) * Severe persistent headache * Shortness of breath * Reddened, hot, painful area to leg or breast * schedule visit in 4 weeks - Follow up plan
[2021-02-05 09:32] VITALS: BP 101/53
== END 2021-02-05 16:00 | disposition home or self-care (01) | DRG 774 ==
LOC: TRG 12:12 → APU 12:13 → LD 12:47 → TRG 13:36 → LD 13:39 → OB 23:00
PROVIDERS: ADMIT Obstetrics & Gynecology; ATTEND Obstetrics & Gynecology
PROC: 10E0XZZ Delivery of Products of Conception, External Approach (ICD-10-PCS; principal; 2021-02-03)
PROC: 3E0R3BZ Introduction of Anesthetic Agent into Spinal Canal, Percutaneous Approach (ICD-10-PCS; 2021-02-03)
PROC: 00HU33Z Insertion of Infusion Device into Spinal Canal, Percutaneous Approach (ICD-10-PCS; 2021-02-03)
DX: O77.0 Labor and delivery complicated by meconium in amniotic fluid (principal); O98.32 Other infections with a predominantly sexual mode of transmission complicating childbirth; O42.02 Full-term premature rupture of membranes, onset of labor within 24 hours of rupture; A60.00 Herpesviral infection of urogenital system, unspecified; Z3A.49 Greater than 42 weeks gestation of pregnancy; Z37.0 Single live birth; Z3A.38 38 weeks gestation of pregnancy; O98.52 Other viral diseases complicating childbirth; U07.1 COVID-19
CPT/HCPCS: 36415; 59025; 85014; 85018; 85027; 86592; 86850; 86900; 86901; G0378; J0595; J2590; J7120; U0003